=== PATIENT | female | born 1995 | race Caucasian/White ===

== ENCOUNTER → 2022-09-04 | Outpatient (CLI) | payer OTHER ==
--- NOTE | 2022-09-04 11:43 | USB ---
Reason for Exam: Clinical finding. Indicated Problems: Palpable abnormality of the right side for 3 Month(s). Findings: The lower inner quadrant of the right breast and the retroareolar of the right breast were scanned. Hypoechoic collection subcutaneous region measures 3.6 x 0.6 x 1.7 cm and may reflect posttraumatic change however underlying infection is not excluded. Appropriate therapeutic intervention is advised as well as short-term ultrasound follow-up.. Overall Assessment: Probably benign, BI-RAD 3 Management: Diagnostic Breast Ultrasound of the right breast in 2 months. A clinical breast exam by your physician is recommended on an annual basis and results should be correlated with mammographic findings. This exam should not preclude additional follow-up of suspicious palpable abnormalities. Results were given to the patient verbally at the time of exam. Electronically signed and approved by: Sunny Walker M.D. Radiologis
== END | disposition home or self-care (01) ==
LOC: RADUSWWP 10:55
PROVIDERS: ATTEND Family Medicine
DX: L98.9 Disorder of the skin and subcutaneous tissue, unspecified (principal)

== ENCOUNTER → 2022-10-24 | Outpatient (CLI) | payer OTHER ==
--- NOTE | 2022-10-24 08:54 | USB ---
Reason for Exam: Follow-up at short interval from prior study. Technique: Method: Targeted. Findings: The medial section of the breast of the right breast was scanned. Targeted ultrasound right breast far medially, parasternal region at the patient's symptomatic site, 4:00 position, 12 cm from the nipple. There is persistence of a platelike mildly complex collection at and just deep to the skin surface measuring 3.4 x 1.8 x 0.4 cm. Subtle tract extending to the skin surface. Persistent hyperemia around the collection and some minimal within the collection. Previously measured 3.6 x 1.7 x 0.6 cm. Only minimally smaller now. Overall Assessment: Probably benign, BI-RAD 3 Management: Diagnostic Breast Ultrasound of the right breast in 6 months. Recommend clinical reassessment and further management for suspected cutaneous/subcutaneous infectious process. Possibly inflamed sebaceous cyst. If the area fails to improve with further antibiotic use, consider excision versus incision and drainage. Ultrasound follow-up after completion of treatment can ensure successful clearance. Results were given to the patient verbally at the time of exam. Electronically signed and approved by: Annette Westfall M.D. Radiologist
== END | disposition home or self-care (01) ==
LOC: RADUSWWP 08:14
PROVIDERS: ATTEND Family Medicine
DX: R92.8 Other abnormal and inconclusive findings on diagnostic imaging of breast (principal)